=== PATIENT | female | born 1985 | race Caucasian/White ===

== ENCOUNTER 2019-03-30 08:38 | Emergency (ER) | payer MEDICAID ==
[~2019-03-30] VITALS: Ht 165.1 cm; Wt 80.0 kg
[2019-03-30] MEDS ORDERED: KETOROLAC 30MG/ML VIAL IV STA (09:11)
[2019-03-30] MEDS ORDERED: ONDANSETRON HCL 4MG/2ML INJ IV STA (09:11)
[2019-03-30] MEDS ORDERED: SODIUM CHLORIDE 0.9% 1,000 ML IV ONE ×2 (09:11→14:50)
[2019-03-30 11:01] LABS: BASOPHILS % 0.4 % (0.0-2.0); EOSINOPHILS % 0.2 % (0.0-5.0); HEMATOCRIT. 36.2 % (36.0-48.0); LYMPHOCYTES % 32.3 % (20.0-50.0); MEAN CORPUSCULAR HEMOGLOBIN 27.6 pg (28.0-32.0); MEAN PLATELET VOLUME 7.4 fl (7.4-10.4); MONOCYTES % 4.2 % (2.0-8.0); NEUTROPHILS % 62.9 % (40.0-76.0); PLATELET 452 x1000/uL (130-400); RED BLOOD CELL COUNT 4.37 mill/uL (4.2-5.4); RED CELL DISTRIBUTION WIDTH 15.6 % (11.6-14.6)
[2019-03-30 11:09] LABS: CHLORIDE 105 mEq/L (98-107); CLARITY URINE TURBID (CLEAR); COLOR URINE YELLOW (YELLOW); KETONES URINE 1+ (NEGATIVE); LEUKOCYTE ESTERASE URINE NEGATIVE (NEGATIVE); NITRITE URINE NEGATIVE (NEGATIVE); OCCULT BLOOD URINE TRACE (NEGATIVE); PROTEIN URINE NEGATIVE (NEGATIVE); SPECIFIC GRAVITY URINE 1.022 (1.005-1.030); UROBILINOGEN URINE 0.2 E.U./dL (0.2-1.0)
[2019-03-30 11:13] LABS: HCG SCREEN NEGATIVE
[2019-03-30 11:28] LABS: ETHANOL BLOOD 348 mg/dL
[2019-03-30 11:38] LABS: *BARBITURATES SCREEN URINE NEGATIVE (NEGATIVE); *BENZODIAZEPINES SCREEN URINE NEGATIVE (NEGATIVE); *COCAINE SCREEN URINE NEGATIVE (NEGATIVE)
[2019-03-30 11:39] LABS: CANNABINOID URINE SCREEN NEGATIVE (NEGATIVE); METHADONE URINE SCREEN NEGATIVE (NEGATIVE); OPIATES URINE SCREEN NEGATIVE (NEGATIVE); PHENCYCLIDINE URINE SCREEN NEGATIVE (NEGATIVE)
[2019-03-30 11:45] LABS: *AMPHETAMINES SCREEN URINE PRESUMTIVE POSITIVE (NEGATIVE)
[2019-03-30] MEDS ORDERED: KETOROLAC 15MG/ML VIAL IV ONE (12:45)
[2019-03-30] MEDS ORDERED: LORAZEPAM 1MG TABLET PO ONE (14:45)
[2019-03-30] MEDS ORDERED: LORAZEPAM 2MG/ML CPJ IV ONE (15:00)
[2019-03-30] MEDS ORDERED: ONDANSETRON HCL 4MG/2ML INJ IV ONE (15:00)
[2019-03-30 17:44] VITALS: BP 143/68
== END 2019-03-30 17:50 | disposition home or self-care (01) ==
LOC: ER 08:38
DX: R07.89 Other chest pain (principal); R10.9 Unspecified abdominal pain; F19.10 Other psychoactive substance abuse, uncomplicated; F41.9 Anxiety disorder, unspecified; E11.9 Type 2 diabetes mellitus without complications
CPT/HCPCS: 36415; 71045; 74176; 80053; 80305; 80320; 81003; 81025; 83690; 83880; 84484; 84703; 85025; 93005; 96361; 96374; 96375; 96376; 99284; J1885; J2060; J2405; J7030; Z7610; G0480

== ENCOUNTER 2022-10-15 07:19 | Inpatient (IN) | payer MEDICAID, OTHER ==
[~2022-10-15] VITALS: Ht 157.5 cm; Wt 100.3 kg
[2022-10-15] MEDS ORDERED: SODIUM CHLORIDE 0.9% 1,000 ML IV ONE (07:45)
[2022-10-15] MEDS ORDERED: LIDOCAINE HCL/PF 1% 2ML VIAL ONE (08:00)
[2022-10-15 08:52] LABS: BG CARBOXYHEMOGLOBIN 0.1 % (0.5-1.5); BG DEOXYHEMOGLOBIN 5.2 % (0.0-5.0); BG HCO3 ACT 18.9 mmol/L (22.0-26.0); BG METHEMOGLOBIN 0.3 % (0.0-1.5); BG OXYGEN SATURATION 94.8 % (92.0-98.5); BG OXYHEMOGLOBIN 94.4 % (94.0-97.0); BG PCO2 34.8 mmHg (35.0-45.0); BG PH 7.352 (7.350-7.450); BG PO2 85.3 mmHg (75.0-100.0); BG SAMPLE SITE RIGHT RADIAL; BG TOTAL HEMOGLOBIN 9.8 g/dL (12.0-18.0); BG VENT MODE ROOM AIR
[2022-10-15 10:47] LABS: EOSINOPHILS % 0.4 % (0.0-5.0); HEMOGLOBIN. 8.9 g/dL (12.0-16.0); LYMPHOCYTES % 40.2 % (20.0-50.0); MEAN CORPUSCULAR HEMOGLOBIN 23.7 pg (28.0-32.0); MEAN CORPUSCULAR VOLUME 72.2 fL (81.0-99.0); MEAN PLATELET VOLUME 7.8 fl (7.4-10.4); MONOCYTES % 4.6 % (2.0-8.0); NEUTROPHILS % 53.8 % (40.0-76.0); PLATELET 308 x1000/uL (130-400); RED BLOOD CELL COUNT 3.74 mill/uL (4.2-5.4); RED CELL DISTRIBUTION WIDTH 23.7 % (11.6-14.6)
[2022-10-15 10:53] LABS: CHLORIDE 106 mEq/L (98-107)
[2022-10-15 11:00] LABS: INR 1.1; PROTHROMBIN TIME 11.4 sec (9.6-11.0)
[2022-10-15 11:02] LABS: BETA HYDROXYBUTYRATE 0.3 mMol/L (0.0-0.3); ETHANOL BLOOD 138 mg/dL
[2022-10-15] MEDS ORDERED: LORAZEPAM 2MG/ML CPJ IV NR ×3 (11:45→15:30)
[2022-10-15] MEDS ORDERED: SODIUM CHL 0.9% + KCL 20MEQ/L 1,000 ML IV SCH (11:45)
[2022-10-15 14:25] LABS: PHOSPHORUS 2.3 mg/dL (2.5-4.9)
[2022-10-15 14:25] LABS: CLARITY URINE CLEAR (CLEAR); COLOR URINE YELLOW (YELLOW); KETONES URINE 1+ (NEGATIVE); LEUKOCYTE ESTERASE URINE NEGATIVE (NEGATIVE); NITRITE URINE NEGATIVE (NEGATIVE); OCCULT BLOOD URINE 2+ (NEGATIVE); PH URINE 5.5 (4.5-8.0); PROTEIN URINE NEGATIVE (NEGATIVE); SPECIFIC GRAVITY URINE 1.025 (1.005-1.030); UROBILINOGEN URINE 0.2 E.U./dL (0.2-1.0)
[2022-10-15 14:30] LABS: UCG SCREEN NEGATIVE
[2022-10-15] MEDS ORDERED: CLONIDINE 0.1MG TABLET PO PRN (15:15)
[2022-10-15] MEDS ORDERED: LORAZEPAM 2MG/ML CPJ IV PRN (15:15)
[2022-10-15] MEDS ORDERED: ACETAMINOPHEN 650MG/20.3ML UDC GT PRN (15:15)
[2022-10-15] MEDS ORDERED: IPRATROPIUM/ALBUTEROL 0.5-3(2.5)MG/3ML NEB HHN PRN (15:15)
[2022-10-15] MEDS ORDERED: MULTIVITAMINS,THER W-MINERALS TABLET PO NR (15:30)
[2022-10-15] MEDS ORDERED: DEXTROSE 50% WATER 50ML SYRINGE IV PRN (15:30)
[2022-10-15] MEDS ORDERED: MAGNESIUM 2 G PREMIX 50 ML IV NR (15:30)
[2022-10-15] MEDS: KCL 20MEQ/100ML PREMIX 100 ML IV SCH ×2 (15:45→21:20)
[2022-10-15 15:53] LABS: CREATINE KINASE 150 IU/L (26-192); TOTAL IRON BINDING CAPACITY 347 ug/dL (250-450)
[2022-10-15 16:24] LABS: FOLIC ACID (FOLATE) SERUM 8.6 ng/mL (>5.38)
[2022-10-15] MEDS ORDERED: FOLIC ACID 1 MG, THIAMINE HCL 100 MG in SODIUM CHLORIDE 0.9% 1,000 ML IV NR (16:30)
[2022-10-15] MEDS: BLOOD SUGAR DIAGNOSTIC STRIP TEST SCH ×2 (17:28→21:55)
[2022-10-15] MEDS: INSULIN LISPRO 100 UNITS/ML SUBCUT SCH ×2 (17:41→21:00)
[2022-10-15] MEDS ORDERED: POTASSIUM PHOS,M-BASIC-D-BASIC 30 MMOL in SODIUM CHLORIDE 0.9% 500 ML IV NR (18:00)
[2022-10-15 18:04] VITALS: BP 147/63
[2022-10-15] MEDS ORDERED: LORA2TAB95 PO (18:26)
[2022-10-15] MEDS ORDERED: METF-874 PO (18:33)
[2022-10-15] MEDS ORDERED: GLIM2TAB30 PO (18:34)
[2022-10-15] MEDS ORDERED: SITA25TA3 PO (18:34)
[2022-10-15 20:00] VITALS: BP 145/87
[2022-10-15] MEDS: LORAZEPAM 2MG/ML CPJ IV PRN ×2 (20:00→23:07)
[2022-10-15] MEDS ORDERED: PANTOPRAZOLE SODIUM 40 MG/VIAL IV NR (20:45)
[2022-10-15] MEDS: SODIUM CHLORIDE 0.9% 1,000 ML IV SCH (21:20)
[2022-10-16] VITALS: BP 129/71
[2022-10-16] MEDS ORDERED: MAGNESIUM 2 G PREMIX 50 ML IV NR (00:15)
[2022-10-16] MEDS ORDERED: KCL 20MEQ/100ML PREMIX 100 ML IV SCH (00:30)
[2022-10-16 00:32] LABS: CREATINE KINASE 93 IU/L (26-192)
[2022-10-16] MEDS: SODIUM CHLORIDE 0.9% 1,000 ML IV SCH (01:30)
[2022-10-16 04:00] VITALS: BP 130/75
[2022-10-16 04:04] LABS: *AMPHETAMINES SCREEN URINE NEGATIVE (NEGATIVE); *BARBITURATES SCREEN URINE NEGATIVE (NEGATIVE); CANNABINOID URINE SCREEN NEGATIVE (NEGATIVE); METHADONE URINE SCREEN NEGATIVE (NEGATIVE); OPIATES URINE SCREEN NEGATIVE (NEGATIVE); PHENCYCLIDINE URINE SCREEN NEGATIVE (NEGATIVE)
[2022-10-16 04:26] LABS: *BENZODIAZEPINES SCREEN URINE PRESUMTIVE POSITIVE (NEGATIVE); *COCAINE SCREEN URINE PRESUMTIVE POSITIVE (NEGATIVE)
[2022-10-16] MEDS: LORAZEPAM 2MG/ML CPJ IV PRN ×2 (04:42→19:09)
[2022-10-16] MEDS: BLOOD SUGAR DIAGNOSTIC STRIP TEST SCH ×4 (05:55→21:50)
[2022-10-16] MEDS: INSULIN LISPRO 100 UNITS/ML SUBCUT SCH ×4 (06:03→21:55)
[2022-10-16 08:00] VITALS: BP 148/83
[2022-10-16] MEDS ORDERED: DEXT 5%/0.45% NACL 1000ML 1,000 ML IV SCH (08:00)
[2022-10-16] MEDS: FOLIC ACID 1MG TABLET PO SCH (09:21)
[2022-10-16] MEDS: PANTOPRAZOLE SODIUM 40 MG/VIAL IV SCH (09:21)
[2022-10-16] MEDS: LORAZEPAM 1MG TABLET PO PRN ×2 (09:22→14:59)
[2022-10-16] MEDS: THIAMINE HCL 100MG TABLET PO SCH (09:22)
[2022-10-16] MEDS: DEXT 5%/0.45% NACL 1000ML 1,000 ML IV SCH ×3 (09:31→22:20)
[2022-10-16] MEDS: ONDANSETRON HCL 4MG/2ML INJ IV PRN ×2 (09:31→16:55)
[2022-10-16 10:01] LABS: BASOPHILS % 0.3 % (0.0-2.0); EOSINOPHILS % 0.9 % (0.0-5.0); HEMATOCRIT. 25.5 % (36.0-48.0); HEMOGLOBIN. 8.3 g/dL (12.0-16.0); LYMPHOCYTES % 11.5 % (20.0-50.0); MEAN CORPUSCULAR HEMOGLOBIN 23.6 pg (28.0-32.0); MEAN CORPUSCULAR VOLUME 72.1 fL (81.0-99.0); MEAN PLATELET VOLUME 7.3 fl (7.4-10.4); MONOCYTES % 3.7 % (2.0-8.0); NEUTROPHILS % 83.6 % (40.0-76.0); PLATELET 277 x1000/uL (130-400); RED BLOOD CELL COUNT 3.54 mill/uL (4.2-5.4); RED CELL DISTRIBUTION WIDTH 23.2 % (11.6-14.6)
[2022-10-16 10:13] LABS: CHLORIDE 105 mEq/L (98-107)
[2022-10-16] MEDS ORDERED: POTASSIUM CHLORIDE 20MEQ TABLET SR PO NR (10:45)
[2022-10-16 10:49] LABS: CREATINE KINASE 74 IU/L (26-192); HDL CHOLESTEROL 75 mg/dL (40-59); LDL CHOLESTEROL 51 mg/dL (5-100); T4 FREE 1.13 ng/dL (0.76-1.46)
[2022-10-16 12:00] VITALS: BP 139/79
[2022-10-16] MEDS: FERROUS SULFATE 325MG TABLET PO SCH ×2 (12:31→16:51)
[2022-10-16 13:47] LABS: PLATELET ESTIMATE NORMAL
[2022-10-16 16:00] VITALS: BP 137/70
[2022-10-16] MEDS: ACETAMINOPHEN 325MG TABLET PO PRN (18:06)
[2022-10-16 20:12] VITALS: BP 140/77
[2022-10-16] MEDS ORDERED: POTASSIUM CHLORIDE 10MEQ TABLET SR PO NR (21:00)
[2022-10-16] MEDS: LEVOFLOXACIN 750MG PREMIX 150 ML IV SCH (21:52)
[2022-10-16] MEDS ORDERED: INSULIN GLARGINE 100 UNITS/ML SUBCUT SCH (22:00)
[2022-10-16] MEDS ORDERED: VANCOMYCIN 2,000 MG in DEXT 5% WATER 500 ML IV NR (22:00)
[2022-10-17] VITALS: BP 153/67
[2022-10-17] MEDS: ACETAMINOPHEN 325MG TABLET PO PRN ×4 (00:25→21:31)
[2022-10-17] MEDS: LORAZEPAM 2MG/ML CPJ IV PRN ×5 (00:28→19:18)
[2022-10-17 04:00] VITALS: BP 136/76
[2022-10-17] MEDS: DEXT 5%/0.45% NACL 1000ML 1,000 ML IV SCH ×4 (05:00→21:12)
[2022-10-17] MEDS: FERROUS SULFATE 325MG TABLET PO SCH ×3 (06:16→17:10)
[2022-10-17] MEDS: INSULIN LISPRO 100 UNITS/ML SUBCUT SCH ×4 (06:17→21:11)
[2022-10-17] MEDS: BLOOD SUGAR DIAGNOSTIC STRIP TEST SCH ×4 (06:18→20:38)
[2022-10-17 06:37] LABS: BASOPHILS % 0.2 % (0.0-2.0); EOSINOPHILS % 0.5 % (0.0-5.0); HEMATOCRIT. 23.8 % (36.0-48.0); HEMOGLOBIN. 7.8 g/dL (12.0-16.0); LYMPHOCYTES % 9.5 % (20.0-50.0); MEAN CORPUSCULAR HEMOGLOBIN 23.4 pg (28.0-32.0); MEAN CORPUSCULAR VOLUME 71.1 fL (81.0-99.0); MEAN PLATELET VOLUME 7.8 fl (7.4-10.4); MONOCYTES % 3.4 % (2.0-8.0); NEUTROPHILS % 86.4 % (40.0-76.0); PLATELET 227 x1000/uL (130-400); RED BLOOD CELL COUNT 3.35 mill/uL (4.2-5.4)
[2022-10-17 07:03] LABS: CHLORIDE 102 mEq/L (98-107)
[2022-10-17 07:10] LABS: PHOSPHORUS 2.3 mg/dL (2.5-4.9)
[2022-10-17 08:00] VITALS: BP 118/62
[2022-10-17] MEDS ORDERED: POTASSIUM CHLORIDE 20MEQ TABLET SR PO NR (08:00)
[2022-10-17] MEDS: PANTOPRAZOLE SODIUM 40 MG/VIAL IV SCH (08:06)
[2022-10-17] MEDS: THIAMINE HCL 100MG TABLET PO SCH (08:06)
[2022-10-17] MEDS: FOLIC ACID 1MG TABLET PO SCH (08:06)
[2022-10-17] MEDS: VANCOMYCIN 1G PREMIX 200 ML IV SCH ×2 (08:07→21:10)
[2022-10-17] MEDS ORDERED: MAGNESIUM 2 G PREMIX 50 ML IV NR (10:00)
[2022-10-17 12:00] VITALS: BP 165/87
[2022-10-17 12:02] LABS: CLARITY URINE CLEAR (CLEAR); COLOR URINE YELLOW (YELLOW); KETONES URINE NEGATIVE (NEGATIVE); LEUKOCYTE ESTERASE URINE NEGATIVE (NEGATIVE); NITRITE URINE NEGATIVE (NEGATIVE); OCCULT BLOOD URINE NEGATIVE (NEGATIVE); PROTEIN URINE NEGATIVE (NEGATIVE); SPECIFIC GRAVITY URINE 1.006 (1.005-1.030); UROBILINOGEN URINE 0.2 E.U./dL (0.2-1.0)
[2022-10-17 16:00] VITALS: BP 118/62
[2022-10-17 20:30] VITALS: BP 143/69
[2022-10-17] MEDS: LEVOFLOXACIN 750MG PREMIX 150 ML IV SCH (21:10)
[2022-10-18] VITALS: BP 135/71
[2022-10-18] MEDS: LORAZEPAM 2MG/ML CPJ IV PRN ×3 (00:13→10:01)
[2022-10-18 04:45] VITALS: BP 141/75
[2022-10-18] MEDS: ACETAMINOPHEN 325MG TABLET PO PRN (05:14)
[2022-10-18] MEDS: BLOOD SUGAR DIAGNOSTIC STRIP TEST SCH ×2 (06:21→12:12)
[2022-10-18] MEDS ORDERED: INSULIN GLARGINE 100 UNITS/ML SUBCUT SCH (07:00)
[2022-10-18 08:00] VITALS: BP 110/65
[2022-10-18] MEDS: INSULIN LISPRO 100 UNITS/ML SUBCUT SCH ×2 (08:41→12:10)
[2022-10-18] MEDS: PANTOPRAZOLE SODIUM 40 MG/VIAL IV SCH (08:42)
[2022-10-18] MEDS: FOLIC ACID 1MG TABLET PO SCH (08:42)
[2022-10-18] MEDS: FERROUS SULFATE 325MG TABLET PO SCH ×2 (08:42→12:10)
[2022-10-18] MEDS: THIAMINE HCL 100MG TABLET PO SCH (08:42)
[2022-10-18] MEDS: VANCOMYCIN 1G PREMIX 200 ML IV SCH (09:12)
[2022-10-18 10:48] LABS: BASOPHILS % 0.3 % (0.0-2.0); EOSINOPHILS % 0.6 % (0.0-5.0); HEMATOCRIT. 28.1 % (36.0-48.0); HEMOGLOBIN. 9.1 g/dL (12.0-16.0); LYMPHOCYTES % 33.8 % (20.0-50.0); MEAN CORPUSCULAR HEMOGLOBIN 23.7 pg (28.0-32.0); MEAN CORPUSCULAR VOLUME 72.9 fL (81.0-99.0); MEAN PLATELET VOLUME 8.3 fl (7.4-10.4); MONOCYTES % 5.9 % (2.0-8.0); NEUTROPHILS % 59.4 % (40.0-76.0); PLATELET 213 x1000/uL (130-400); RED BLOOD CELL COUNT 3.85 mill/uL (4.2-5.4); RED CELL DISTRIBUTION WIDTH 24.1 % (11.6-14.6)
[2022-10-18 12:07] LABS: HEMATOCRIT 27.6 % (36.0-48.0); MEAN CORPUSCULAR HEMOGLOBIN 23.7 pg (28.0-32.0); MEAN CORPUSCULAR VOLUME 72.5 fL (81.0-99.0); PLATELET 203 x1000/uL (130-400); RED CELL DISTRIBUTION WIDTH 23.8 % (11.6-14.6)
[2022-10-18 12:14] LABS: CHLORIDE 99 mEq/L (98-107)
[2022-10-18] MEDS ORDERED: TEMAZEPAM 15MG CAPSULE PO PRN (13:15)
[2022-10-18] MEDS ORDERED: SERTRALINE HCL 50MG TABLET PO SCH (13:15)
[2022-10-18 16:00] LABS: CHLORIDE 99 mEq/L (98-107)
== END 2022-10-18 13:23 | disposition left against medical advice (07) | DRG 248 ==
LOC: ER 07:35 → 7EST 13:04
PROVIDERS: ADMIT Internal Medicine; ATTEND Internal Medicine
DX: A04.9 Bacterial intestinal infection, unspecified (principal); E87.20 Acidosis, unspecified; E46 Unspecified protein-calorie malnutrition; E87.6 Hypokalemia; D50.9 Iron deficiency anemia, unspecified; E11.65 Type 2 diabetes mellitus with hyperglycemia; F10.239 Alcohol dependence with withdrawal, unspecified; F14.90 Cocaine use, unspecified, uncomplicated; R19.7 Diarrhea, unspecified; K80.20 Calculus of gallbladder without cholecystitis without obstruction; Z20.822 Contact with and (suspected) exposure to COVID-19; F41.9 Anxiety disorder, unspecified; Z53.29 Procedure and treatment not carried out because of patient's decision for other reasons; F32.9 Major depressive disorder, single episode, unspecified; G47.00 Insomnia, unspecified; Z91.199 Patient's noncompliance with other medical treatment and regimen due to unspecified reason; Z68.41 Body mass index [BMI] 40.0-44.9, adult
CPT/HCPCS: 36415; 36600; 71045; 74176; 76700; 80048; 80053; 80061; 80202; 80305; 80320; 81003; 81025; 82010; 82375; 82550; 82607; 82728; 82746; 82805; 82962; 83036; 83540; 83550; 83605; 83735; 83880; 84100; 84145; 84439; 84443; 84481; 84484; 85025; 85027; 85379; 87426; 92610; 93005; 93306; 93970; 97161; 97166; 99291; C9113; J1815; J1956; J2060; J2405; J3370; J3411; J3475; J3480; J3490; J7030; J7040; J7060; G0480

== ENCOUNTER 2022-12-27 06:23 | Emergency (ER) | payer MEDICAID ==
[~2022-12-27] VITALS: Ht 165.1 cm; Wt 85.0 kg
[~2022-12-27 06:23] MED LIST: GLIM2TAB30 PO; LORA2TAB95 PO; METF-874 PO; SITA25TA3 PO
[2022-12-27 06:24] VITALS: BP 124/72; PULSE 76; RESP 16; TEMP 98.1; O2SAT 98
[2022-12-27] MEDS ORDERED: SODIUM CHLORIDE 0.9% 1,000 ML IV ONE (06:30)
[2022-12-27 07:31] LABS: BASOPHILS % 0.2 % (0.0-2.0); EOSINOPHILS % 0.2 % (0.0-5.0); HEMOGLOBIN. 12.1 g/dL (12.0-16.0); LYMPHOCYTES % 23.4 % (20.0-50.0); MEAN CORPUSCULAR HEMOGLOBIN 27.4 pg (28.0-32.0); MEAN CORPUSCULAR VOLUME 81.7 fL (81.0-99.0); MEAN PLATELET VOLUME 7.1 fl (7.4-10.4); MONOCYTES % 4.5 % (2.0-8.0); NEUTROPHILS % 71.7 % (40.0-76.0); PLATELET 403 x1000/uL (130-400); RED BLOOD CELL COUNT 4.41 mill/uL (4.2-5.4); RED CELL DISTRIBUTION WIDTH 20.1 % (11.6-14.6)
[2022-12-27 07:50] LABS: CHLORIDE 104 mEq/L (98-107)
[2022-12-27 08:00] LABS: BETA HYDROXYBUTYRATE 0.2 mMol/L (0.0-0.3)
[2022-12-27] MEDS ORDERED: LORAZEPAM 1MG TABLET PO ONE (08:30)
== END 2022-12-27 09:32 | disposition home or self-care (01) ==
LOC: ER 06:28
DX: F10.129 Alcohol abuse with intoxication, unspecified (principal); F41.9 Anxiety disorder, unspecified; E11.9 Type 2 diabetes mellitus without complications; Y90.8 Blood alcohol level of 240 mg/100 ml or more
CPT/HCPCS: 36415; 71045; 80053; 80320; 82010; 82962; 83690; 84484; 85025; 93005; 99285; J7030; Z7610; G0480

== ENCOUNTER 2022-12-28 04:00 | Emergency (ER) | payer MEDICAID ==
[~2022-12-28] VITALS: Ht 165.1 cm; Wt 78.0 kg
[2022-12-28 04:05] VITALS: BP 154/100; PULSE 126; RESP 16; TEMP 98.6; O2SAT 97
[2022-12-28] MEDS ORDERED: ONDANSETRON HCL 4MG/2ML INJ IV STA (04:24)
[2022-12-28] MEDS ORDERED: SODIUM CHLORIDE 0.9% 1,000 ML IV ONE (04:30)
[2022-12-28 05:08] LABS: BASOPHILS % 0.3 % (0.0-2.0); EOSINOPHILS % 0.2 % (0.0-5.0); HEMATOCRIT. 38.7 % (36.0-48.0); HEMOGLOBIN. 12.7 g/dL (12.0-16.0); LYMPHOCYTES % 17.7 % (20.0-50.0); MEAN CORPUSCULAR HEMOGLOBIN 27.2 pg (28.0-32.0); MEAN CORPUSCULAR VOLUME 82.9 fL (81.0-99.0); MEAN PLATELET VOLUME 7.5 fl (7.4-10.4); MONOCYTES % 6.6 % (2.0-8.0); NEUTROPHILS % 75.2 % (40.0-76.0); PLATELET 422 x1000/uL (130-400); RED BLOOD CELL COUNT 4.67 mill/uL (4.2-5.4); RED CELL DISTRIBUTION WIDTH 19.3 % (11.6-14.6)
[2022-12-28 05:31] LABS: CHLORIDE 101 mEq/L (98-107)
[2022-12-28 05:38] LABS: BETA HYDROXYBUTYRATE 0.2 mMol/L (0.0-0.3)
[2022-12-28 05:59] LABS: ETHANOL BLOOD 310 mg/dL (-10)
[2022-12-28] MEDS ORDERED: LORAZEPAM 2MG/ML CPJ IV NR (06:15)
[2022-12-28] MEDS: SODIUM CHLORIDE 0.9% 1,000 ML IV NR ×2 (06:39→07:29)
== END 2022-12-28 08:13 | disposition left against medical advice (07) ==
LOC: ER 04:00
DX: F10.129 Alcohol abuse with intoxication, unspecified (principal); E11.9 Type 2 diabetes mellitus without complications; Z98.890 Other specified postprocedural states; Y90.8 Blood alcohol level of 240 mg/100 ml or more
CPT/HCPCS: 36415; 80053; 80320; 82010; 83690; 84703; 85025; 96361; 96374; 96375; 99284; J2060; J2405; J7030; Z7610; G0480